=== PATIENT | female | born 1960 | race African-American/Black ===

== ENCOUNTER 2018-02-13 17:08 | Emergency (ER) | payer MEDICARE, BC ==
[2018-02-13] MEDS: KETOROLAC 30 MG INJ IV (18:07)
[2018-02-13] MEDS: METHOCARBAMOL 750 MG TAB PO (18:17)
== END 2018-02-13 19:52 | disposition home or self-care (01) ==
LOC: E/R 17:08
DX: M54.9 Dorsalgia, unspecified (principal); R40.2142 Coma scale, eyes open, spontaneous, at arrival to emergency department; R40.2362 Coma scale, best motor response, obeys commands, at arrival to emergency department; R40.2252 Coma scale, best verbal response, oriented, at arrival to emergency department; F17.210 Nicotine dependence, cigarettes, uncomplicated
CPT/HCPCS: 96372; 99284-25; J1885